=== PATIENT | male | born 1980 | race Two or more races ===

== ENCOUNTER 2021-02-13 15:40 | Emergency (ER) | payer MEDICAID ==
[~2021-02-13] VITALS: Ht 182.9 cm; Wt 98.4 kg
[2021-02-13] MEDS ORDERED: PHENAZOPYRIDINE HCL 100 MG TABLET PO ONE (16:15)
[2021-02-13] MEDS ORDERED: PHENAZOPYRIDINE HCL 100 MG TABLET ONE (16:15)
[2021-02-13 16:20] LABS: *BILIRUBIN,URIN 1+ (NEGATIVE); *BLOOD, URINE 3+ (NEGATIVE); *CLARITY,URINE SLIGHTLY CLOUDY (CLEAR); *COLOR,URINE DARK YELLOW (YELLOW); *KETONES,URINE 1+ (NEGATIVE); LEUKOCYTE ESTERASE ,URINE 1+ (NEGATIVE); NITRITE, URINE NEGATIVE (NEGATIVE); UGLUCOSE NEGATIVE (NEGATIVE)
[2021-02-13 16:55] LABS: RBC,URINE 50-80 /HPF (0-3)
[2021-02-13 16:56] LABS: BACTERIA,URINE FEW /HPF (NONE SEEN)
[2021-02-13] MEDS ORDERED: PHEN-895 PO (17:21)
[2021-02-13] MEDS ORDERED: CEPH250C PO (17:21)
--- NOTE | 2021-02-13 17:37 | NUR ---
Patient discharged to home in stable condition. Written and verbal after care instructions given. Patient verbalizes understanding of instructions. Stressed follow up or return to ER for worsening s/s.
[2021-02-16 16:59] LABS: *GC NAA NEGATIVE; *TRIC.VAG. NAA NEGATIVE
== END 2021-02-13 17:38 | disposition home or self-care (01) ==
LOC: ER 15:40
DX: R30.0 Dysuria (principal); R31.29 Other microscopic hematuria
CPT/HCPCS: 87077; 87086; 87491; A4663

== ENCOUNTER 2021-05-30 08:50 | Emergency (ER) | payer MEDICAID ==
[~2021-05-30] VITALS: Ht 182.9 cm; Wt 94.3 kg
[~2021-05-30 08:50] MED LIST: CEPH250C PO; PHEN-895 PO
[2021-05-30] MEDS ORDERED: TDAP DIPH,PERTUSS,TET VAC/PF 0.5 ML DISP.SYRIN IM ONE ×2 (09:15→09:17)
== END 2021-05-30 10:19 | disposition home or self-care (01) ==
LOC: ER 08:50
DX: S69.81XA Other specified injuries of right wrist, hand and finger(s), initial encounter (principal); W22.8XXA Striking against or struck by other objects, initial encounter; Y93.89 Activity, other specified; Y92.89 Other specified places as the place of occurrence of the external cause
CPT/HCPCS: 73140; 90715; A4663

== ENCOUNTER 2022-01-28 15:10 | Emergency (ER) | payer MEDICAID ==
[~2022-01-28] VITALS: Ht 180.3 cm; Wt 90.7 kg
--- NOTE | 2022-01-28 15:21 | NUR ---
PT WAS CALLED FOR TRIAGE, NO ANSWER. PT IS NOT IN WAITING ROOM AND NOT AUUTSIDE.
--- NOTE | 2022-01-28 15:50 | NUR ---
Patient ambulatory, alert and orientedx4 with complaints of right hand swelling and pain with history of injury yesterday. Patient able to move fingers in right hand, denies nausea,vomiting,abdominal pain. Vitals stable.
--- NOTE | 2022-01-28 16:00 | NUR ---
MD at bedside, medical screening exam in progress.
[2022-01-28] MEDS ORDERED: HYDROCODONE/APAP 5-325MG TABLET PO ONE (16:15)
[2022-01-28] MEDS ORDERED: HYDROCODONE/APAP 5-325MG TABLET ONE (16:16)
--- NOTE | 2022-01-28 16:46 | NUR ---
Wrist thumb lacer applied per MD order. Patient discharged to home in stable condition. Written and verbal after care instructions given. Patient verbalizes understanding of instructions. Stressed follow up or return to ER for worsening s/s. Instructed not to drive. CD of x ray provided to pt.
[2022-01-28 16:49] VITALS: BP 125/80
== END 2022-01-28 16:50 | disposition home or self-care (01) ==
LOC: ER 15:11
DX: S62.291A Other fracture of first metacarpal bone, right hand, initial encounter for closed fracture (principal); Y04.0XXA Assault by unarmed brawl or fight, initial encounter; Y93.89 Activity, other specified; Y92.89 Other specified places as the place of occurrence of the external cause
CPT/HCPCS: 73130; A4663

== ENCOUNTER 2022-04-25 04:38 | Emergency (ER) | payer SELFPAY ==
--- NOTE | 2022-04-25 07:08 | NUR ---
PT left w/o being triaged.
== END 2022-04-25 07:08 | disposition left against medical advice (07) ==
LOC: ER 04:42
DX: Z53.21 Procedure and treatment not carried out due to patient leaving prior to being seen by health care provider (principal)